=== PATIENT | male | born 1955 | race African-American/Black ===

== ENCOUNTER 2017-10-30 18:54 | Emergency (ER) | payer BC ==
[~2017-10-30] VITALS: Ht 177.8 cm; Wt 70.0 kg
[2017-10-30] MEDS ORDERED: IBUPROFEN 600MG TABLET PO ONE (23:45)
[2017-10-30] MEDS ORDERED: LIDOCAINE HCL 1% 20ML VIAL (Pyxis) INJ MC ONE (23:45)
[2017-10-30] MEDS ORDERED: LIDOCAINE HCL/PF 1% 10 MG/ML 5ML VIAL IJ SCH (23:45)
[2017-10-30] MEDS ORDERED: BACITRACIN ZINC OINT UDPKT TOP ONE (23:45)
[2017-10-31 01:22] VITALS: BP 130/68
== END 2017-10-31 01:24 | disposition home or self-care (01) ==
LOC: ER 18:54
DX: S61.215A Laceration without foreign body of left ring finger without damage to nail, initial encounter (principal); F12.10 Cannabis abuse, uncomplicated; W26.0XXA Contact with knife, initial encounter; Y93.89 Activity, other specified; Y92.89 Other specified places as the place of occurrence of the external cause; Y99.8 Other external cause status
CPT/HCPCS: 12001; 99283; J3490